=== PATIENT | male | born 1970 | race Caucasian/White ===

== ENCOUNTER 2018-05-06 15:07 | Emergency (ER) | payer BC ==
--- NOTE | 2018-05-06 16:17 | EDPHYS ---
Physician Documentation [facility] Name: Trey Mir Age: 47 yrs Sex: Male : 1970 Arrival Date: 05/06/2018 Time: 15:11 Bed 12 Private MD: Bishnu Harris V ED Physician Sterling Alonso HPI: 05/06 16:15 This 47 yrs old Male presents to ER via Ambulatory with complaints of Left pm1 ear pain. 16:15 The patient presents with pain. The complaints affect the left ear. Onset: The pm1 symptoms/episode began/occurred 2 week(s) ago. Modifying factors: The symptoms are alleviated by nothing, the symptoms are aggravated by nothing. Associated signs and symptoms: Pertinent positives: sinus trouble, Pertinent negatives: fever, tinnitus, vertigo, vomiting. Severity of symptoms: in the emergency department the symptoms are unchanged. The patient has experienced a previous episode. The patient has been recently seen by a physician: the patient's primary care provider, Dr. Harris with similar presenting complaints, and apparently given a diagnosis of AOM, was given a prescription for pain medications, was given a prescription for antibiotics. Patient given a prescription for Augmentin and Tylenol [address] Harris. Patient has two pills of Augmentin remaining. Antibiotics have not resolved his pain. Tylenol 3 not effective for his pain. Historical: - Allergies: 15:29 No Known Allergies; hj - Home Meds: 15:29 glimepiride 4 mg Oral tab 1 tab once daily [Active]; bisoprolol-hydrochlorothiazide hj 10-6.25 mg oral tab 1 tab once daily [Active]; fenofibrate 150 mg oral cap 1 cap once daily [Active]; losartan 100 mg oral tab 1 tab once daily [Active]; metformin 1,000 mg Oral tr24 1 tab once daily [Active]; - PMHx: 15:29 Hypertension; Diabetes - NIDDM; Hyperlipidemia; hj - PSHx: 15:29 Cholecystectomy; hj - Immunization history:: Adult Immunizations up to date. - Social history:: Smoking status: Patient/guardian denies using tobacco, Patient uses alcohol. - Ebola Screening: : Patient negative for fever greater than or equal to 101.5 degrees Fahrenheit, and additional compatible Ebola Virus Disease symptoms Patient denies exposure to infectious person Patient denies travel to an Ebola-affected area in the 21 days before illness onset. ROS: 16:15 Constitutional: Negative for fever, chills, and weight loss, Eyes: Negative for injury, pm1 pain, redness, and discharge. 16:15 Neck: Negative for injury, pain, and swelling, Cardiovascular: Negative for chest pain, palpitations, and edema, Respiratory: Negative for shortness of breath, cough, wheezing, and pleuritic chest pain, Abdomen/GI: Negative for abdominal pain, nausea, vomiting, diarrhea, and constipation, Back: Negative for injury and pain, : Negative for injury, bleeding, discharge, and swelling, MS/Extremity: Negative for injury and deformity, Skin: Negative for injury, rash, and discoloration, Neuro: Negative for headache, weakness, numbness, tingling, and seizure. 16:15 ENT: Positive for ear pain, sinus congestion, Negative for drainage from ear(s), sore throat. Exam: 16:15 Constitutional: This is a well developed, well nourished patient who is awake, alert, pm1 and in no acute distress. Head/Face: Normocephalic, atraumatic. Eyes: Pupils equal round and reactive to light, extra-ocular motions intact. Lids and lashes normal. Conjunctiva and sclera are non-icteric and not injected. Cornea within normal limits. Periorbital areas with no swelling, redness, or edema. 16:15 Neck: Trachea midline, no thyromegaly or masses palpated, and no cervical lymphadenopathy. Supple, full range of motion without nuchal rigidity, or vertebral point tenderness. No Meningismus. Chest/axilla: Normal chest wall appearance and motion. Nontender with no deformity. No lesions are appreciated. Cardiovascular: Regular rate and rhythm with a normal S1 and S2. No gallops, murmurs, or rubs. Normal PMI, no JVD. No pulse deficits. Respiratory: Lungs have equal breath sounds bilaterally, clear to auscultation and percussion. No rales, rhonchi or wheezes noted. No increased work of breathing, no retractions or nasal flaring. Abdomen/GI: Soft, non-tender, with normal bowel sounds. No distension or tympany. No guarding or rebound. No evidence of tenderness throughout. Back: No spinal tenderness. No costovertebral tenderness. Full range of motion. Skin: Warm, dry with normal turgor. Normal color with no rashes, no lesions, and no evidence of cellulitis. MS/ Extremity: Pulses equal, no cyanosis. Neurovascular intact. Full, normal range of motion. 16:15 ENT: External ear(s): are unremarkable, Ear canal(s): are normal, TM's: bulging, on the left, erythema, on the left, Examination of the other ear shows no obvious abnormality, Nose: no acute changes, Mouth: no acute changes, Posterior pharynx: no acute changes. 16:15 ENT: no mastoid tenderness. Vital Signs: 15:30 BP 173 / 115; Pulse 75; Resp 18; Temp 98.3(O); Pulse Ox 95% on R/A; Weight 145.15 kg; hj Height 6 ft. 0 in. (182.88 cm); Pain 10/10; 15:30 Body Mass Index 43.40 (145.15 kg, 182.88 cm) hj MDM: 16:05 Patient medically screened. pm1 16:15 Data reviewed: vital signs. Data interpreted: Pulse oximetry: on room air is 95 %. pm1 Interpretation: normal. Counseling: I had a detailed discussion with the patient and/or guardian regarding: the historical points, exam findings, and any diagnostic results supporting the discharge/admit diagnosis, the need for outpatient follow up, for definitive care, an ENT specialist, to return to the emergency department if symptoms worsen or persist or if there are any questions or concerns that arise at home. Administered Medications: 16:42 Drug: Rocephin (cefTRIAXone) 1 grams Route: IM; Site: right deltoid; iw 16:55 Follow up: Response: No adverse reaction iw 16:42 Drug: Fenwick 10 mg-325 mg 1 tabs Route: PO; iw 16:55 Follow up: Response: No adverse reaction iw Disposition: 18:39 Co-signature as Attending Physician, Sterling Alonso MD I agree with the assessment and kdr plan of care. Disposition: 05/06/18 16:17 Discharged to Home. Impression: Otitis media, unspecified, left ear. - Condition is Stable. - Discharge Instructions: Otitis Media, Adult. - Prescriptions for cefdinir 300 mg Oral capsule - take 1 capsule by ORAL route every 12 hours for 10 days; 20 capsule. Tramadol 50 mg Oral Tablet - take 1 tablet by ORAL route every 8 hours as needed; 20 tablet. - Medication Reconciliation Form, Thank You Letter, Antibiotic Education, Prescription Opioid Use form. - Follow up: Emergency Department; When: As needed; Reason: Worsening of condition. Follow up: Libia Alexander MD; When: 2 - 3 days; Reason: Recheck today's complaints, Continuance of care, Re-evaluation by your physician. - Problem is new. - Symptoms have improved. Signatures: Sterling Alonso MD MD kdr Matilde Burt RN RN iw Sloan Vincent RN RN hj Jl Baker, [employer] pm1 Corrections: (The following items were deleted from the chart) 16:48 16:17 05/06/2018 16:17 Discharged to Home. Impression: Otitis media, unspecified, left iw ear. Condition is Stable. Forms are Medication Reconciliation Form, Thank You Letter, Antibiotic Education, Prescription Opioid Use. Follow up: Emergency Department; When: As needed; Reason: Worsening of condition. Follow up: Libia Alexander; When: 2 - 3 days; Reason: Recheck today's complaints, Continuance of care, Re-evaluation by your physician. Problem is new. Symptoms have improved. pm1
--- NOTE | 2018-05-06 16:17 | ER ---
Nurse's Notes [facility] Name: Trey Mir Age: 47 yrs Sex: Male : 1970 Arrival Date: 05/06/2018 Time: 15:11 Bed 12 Private MD: Bishnu Harris V Diagnosis: Otitis media, unspecified, left ear Presentation: 05/06 15:24 Presenting complaint: Patient states: a week and a half ago, my L side of the face is hj hurting, went to my PCP, said i had ear infection, prescribed with amox- clav and pain meds; the pain is getting worse; feels like i have blurry vision too; denies fever and chills; reports nausea; reports headache;. Transition of care: patient was not received from another setting of care. Onset of symptoms was May 06, 2018. Risk Assessment: Do you want to hurt yourself or someone else? Patient reports no desire to harm self or others. Initial Sepsis Screen: Does the patient meet any 2 criteria? No. Patient's initial sepsis screen is negative. Does the patient have a suspected source of infection? No. Patient's initial sepsis screen is negative. Care prior to arrival: None. 15:24 Method Of Arrival: Ambulatory 15:24 Acuity: BARRY 4 hj Triage Assessment: 15:30 General: Appears in no apparent distress. uncomfortable, Behavior is calm, cooperative, hj appropriate for age. Pain: Complains of pain in face. Historical: - Allergies: 15:29 No Known Allergies; hj - Home Meds: 15:29 glimepiride 4 mg Oral tab 1 tab once daily [Active]; bisoprolol-hydrochlorothiazide hj 10-6.25 mg oral tab 1 tab once daily [Active]; fenofibrate 150 mg oral cap 1 cap once daily [Active]; losartan 100 mg oral tab 1 tab once daily [Active]; metformin 1,000 mg Oral tr24 1 tab once daily [Active]; - PMHx: 15:29 Hypertension; Diabetes - NIDDM; Hyperlipidemia; hj - PSHx: 15:29 Cholecystectomy; hj - Immunization history:: Adult Immunizations up to date. - Social history:: Smoking status: Patient/guardian denies using tobacco, Patient uses alcohol. - Ebola Screening: : Patient negative for fever greater than or equal to 101.5 degrees Fahrenheit, and additional compatible Ebola Virus Disease symptoms Patient denies exposure to infectious person Patient denies travel to an Ebola-affected area in the 21 days before illness onset. Screenin:30 Abuse screen: Denies threats or abuse. Denies injuries from another. Nutritional hj screening: No deficits noted. Tuberculosis screening: No symptoms or risk factors identified. Fall Risk None identified. Vital Signs: 15:30 BP 173 / 115; Pulse 75; Resp 18; Temp 98.3(O); Pulse Ox 95% on R/A; Weight 145.15 kg; hj Height 6 ft. 0 in. (182.88 cm); Pain 10/10; 15:30 Body Mass Index 43.40 (145.15 kg, 182.88 cm) hj ED Course: 15:11 Patient arrived in ED. rg4 15:12 Bishnu Harris MD is Private Physician. rg4 15:27 Triage completed. hj 15:30 Arm band placed on right wrist. hj 15:31 Patient has correct armband on for positive identification. Bed in low position. Call hj light in reach. Side rails up X 1. Adult w/ patient. 15:50 Sloan Vincent, CARLYLE is Primary Nurse. hj 16:05 Jl Baker NP is PHCP. pm1 16:05 Sterling Alonso MD is Attending Physician. pm1 16:16 Libia Alexander MD is Referral Physician. pm1 16:47 Primary Nurse role handed off by Sloan Vincent RN iw 16:47 Matilde Burt RN is Primary Nurse. iw 16:47 No provider procedures requiring assistance completed. Patient did not have IV access iw during this emergency room visit. Administered Medications: 16:42 Drug: Rocephin (cefTRIAXone) 1 grams Route: IM; Site: right deltoid; iw 16:55 Follow up: Response: No adverse reaction iw 16:42 Drug: Mobile 10 mg-325 mg 1 tabs Route: PO; iw 16:55 Follow up: Response: No adverse reaction iw Outcome: 16:17 Discharge ordered by . pm1 16:47 Discharged to home ambulatory. iw 16:47 Condition: good 16:47 Discharge instructions given to patient, Instructed on discharge instructions, follow up and referral plans. medication usage, Demonstrated understanding of instructions, follow-up care, medications, Prescriptions given X 2. 16:48 Patient left the ED. iw Signatures: Matilde Burt RN RN iw Sloan Vincent RN RN hj Jl Baker, [employer]ING [employer] pm1 Kate Noel rg4 Corrections: (The following items were deleted from the chart) 15:33 15:30 Pulse 75bpm; Resp 18bpm; Pulse Ox 95% RA; Temp 98.3F Oral; 145.15 kg; Height 6 hj ft. 0 in.; BMI: 43.4; Pain 10/; hj
[2018-05-06] MEDS ORDERED: LIDOCAINE 1% MPF 2 ML AMPULE ONE (16:42)
[2018-05-06] MEDS ORDERED: CEFTRIAXONE 1000 MG/VIAL ONE (16:42)
[2018-05-06] MEDS ORDERED: HYDROCODONE/APAP 10/325 TAB ONE (16:43)
== END 2018-05-06 16:48 | disposition home or self-care (01) ==
LOC: ER 15:07
DX: H66.92 Otitis media, unspecified, left ear (principal); I10 Essential (primary) hypertension; E78.5 Hyperlipidemia, unspecified; E11.9 Type 2 diabetes mellitus without complications
CPT/HCPCS: 96372; 99283; J2001